=== PATIENT | female | born 1945 | race Caucasian/White ===

== ENCOUNTER 2017-07-21 17:37 | Emergency (ER) | payer OTHER ==
[~2017-07-21] VITALS: Ht 157.5 cm; Wt 68.2 kg
[~2017-07-21 17:37] MED LIST: ALBU8I INH; BENZ100 PO; CITA20TA4 PO; ENAL2.5 PO; LEVO100T4 PO; METO25 PO; PLAV75TA PO; PRAV20 PO; ZITH250T PO
[2017-07-21 17:40] VITALS: BP 138/65; PULSE 89; RESP 16; TEMP 98.8
[2017-07-21] MEDS ORDERED: ENAL2.5T PO (17:55)
[2017-07-21] MEDS ORDERED: CLOP75TA PO (17:55)
[2017-07-21] MEDS ORDERED: LEVO100T5 PO (17:55)
[2017-07-21] MEDS ORDERED: PRAV40TA2 PO (17:55)
[2017-07-21] MEDS ORDERED: CITA40TA4 PO (17:55)
[2017-07-21] MEDS ORDERED: ASPI1TAB57 PO (17:55)
[2017-07-21] MEDS ORDERED: METO25TA3 PO (17:55)
--- NOTE | 2017-07-21 19:04 | RADRPT ---
EXAM DATE/TIME: 07/21/2017 18:33 [place] COMPARISON: CHEST PA & LAT, July 19, 2015, 15:36. INDICATIONS : Cough and fever. MEDICAL HISTORY : None. SURGICAL HISTORY : None. ENCOUNTER: Initial ACUITY: 3 days PAIN SCORE: 3/10 LOCATION: Bilateral upper chest FINDINGS: A single view of the chest demonstrates the lungs to be symmetrically aerated without evidence of mas s, infiltrate or effusion. The cardiomediastinal contours are unremarkable. Osseous structures are intact. CONCLUSION: No evidence of acute cardiopulmonary disease. Yevgeniy Lehman MD on July 21, 2017 at 19:02 Board Certified Radiologist. This report was verified electronically.
--- NOTE | 2017-07-21 19:08 | PD ---
HPI Chief Complaint: Cold / Flu Symptoms Time Seen by Provider: 19:14 Travel History International Travel<30 days: No Contact w/Intl Traveler<30days: No Traveled to known affect area: No History of Present Illness HPI 72-year-old female presents to emergency department complaining of a nonproductive cough, runny nose for 2-3 days. Patient states that she is developed increased chest discomfort with coughing located in the front sternal area yesterday and decided to come in today. Says she just has not been feeling well and wanted to be evaluated. She says she has felt feverish but does not know her temperature. Denies shortness of breath or pain with inspiration. Denies nausea, vomiting, or diarrhea. Denies urinary symptoms. PFSH Past Medical History Hx Anticoagulant Therapy: Yes (plavix) Depression: Yes Cardiovascular Problems: Yes (htn on meds, [place], 4 stents placed) High Cholesterol: Yes Chemotherapy: No Cerebrovascular Accident: No Diabetes: Yes (diet control) Patient Takes Glucophage: No Diminished Hearing: No Hypertension: Yes Respiratory: No Immunizations Current: No Thyroid Disease: Yes Influenza Vaccination: No ?: Not Menopausal: Yes Past Surgical History Coronary Stent: Yes Hysterectomy: Yes Social History Alcohol Use: No Tobacco Use: No Substance Use: No Allergies-Medications (Allergen,Severity, Reaction): Coded Allergies: No Known Allergies (Unverified Adverse Reaction, Unknown, 07/21/17) Reported Meds & Prescriptions Reported Meds & Active Scripts Active Tessalon Perles (Benzonatate) 100 Mg Cap 100 Mg PO TID PRN 5 Days Prednisone 5 Mg Tab 5 Mg PO DAILY 7 Days Reported Pravastatin 40 Mg Tab 40 Mg PO DAILY Enalapril (Enalapril Maleate) 2.5 Mg Tab 2.5 Mg PO DAILY Levothyroxine (Levothyroxine Sodium) 100 Mcg Tab 100 Mcg PO DAILY Metoprolol Tartrate 25 Mg Tab 25 Mg PO DAILY Aspirin 81 (Aspirin) 81 Mg Tabdr 81 Mg PO DAILY Citalopram (Citalopram Hydrobromide) 40 Mg Tab 40 Mg PO DAILY Clopidogrel (Clopidogrel Bisulfate) 75 Mg Tab 75 Mg PO DAILY Review of Systems Except as stated in HPI: all other systems reviewed are Neg Physical Exam Narrative GENERAL: SKIN: Warm and dry. HEAD: Normocephalic. EYES: No scleral icterus. No injection or drainage. NECK: Supple, trachea midline. No JVD or lymphadenopathy. CARDIOVASCULAR: Regular rate and rhythm without murmurs, gallops, or rubs. RESPIRATORY: Breath sounds equal bilaterally. No accessory muscle use. GASTROINTESTINAL: Abdomen soft, non-tender, nondistended. MUSCULOSKELETAL: No cyanosis, or edema. BACK: Nontender without obvious deformity. No CVA tenderness. Data Data Last Documented VS Vital Signs Date Time Temp Pulse Resp B/P (MAP) Pulse Ox O2 Delivery O2 Flow Rate FiO2 07/21/17 17:40 98.8 89 16 138/65 (89) Orders Orders Chest, Single Ap (07/21/17 ) Ed Discharge Order (07/21/17 19:15) MDM Medical Decision Making Medical Screen Exam Complete: Yes Emergency Medical Condition: Yes Differential Diagnosis Acute bronchitis, pneumonia, asthma, influenza, viral syndrome. Narrative Course 72-year-old female presents to emergency department complaining of a nonproductive cough, runny nose for 2-3 days. Patient states that she is developed increased chest discomfort with coughing located in the front sternal area yesterday and decided to come in today. Says she just has not been feeling well and wanted to be evaluated. She says she has felt feverish but does not know her temperature. Denies shortness of breath or pain with inspiration. Denies nausea, vomiting, or diarrhea. Denies urinary symptoms. She says that ' they normally give her a z pack and send her home' whenever she has these symptoms. Vitals stable. Chest xray without acute process. Physical exam findings consistent with bronchitis vs viral syndrome. I explained that antibiotics would not help her condition as this appears to be a viral infection. I educated pt on the importance of using antibiotics only when indicated. Pt to start using her albuterol inhalers at home. This may help with congestion and cough. Tessalon pearles and prednisone for symptomatic relief. Encouraged adequate fluid intake and nutritious diet. Advised pt to follow up with her PCP in 2-3 days. Return to the ED for worsening or persistent symptoms. Diagnosis Primary Impression: Bronchitis Referrals: Primary Care Physician Additional Instructions: Follow up with your primary care physician within 2-3 days. If your symptoms persist or worsen, return to the emergency department. Continue albuterol inhalers for your congestion and chest discomfort. Scripts Benzonatate (Tessalon Perles) 100 Mg Cap 100 MG PO TID Y for COUGH for 5 Days, CAP 0 Refills Prov: Iwona Izquierdo 07/21/17 Prednisone (Prednisone) 5 Mg Tab 5 MG PO DAILY for 7 Days, #7 TAB 0 Refills Prov: Iwona Izquierdo 07/21/17 Disposition: 01 DISCHARGE HOME Condition: Stable Iwona Izquierdo Jul 21, 2017 19:08
[2017-07-21] MEDS ORDERED: PRED5TAB PO (19:13)
[2017-07-21] MEDS ORDERED: BENZ100 PO (19:13)
== END 2017-07-21 19:32 | disposition home or self-care (01) ==
LOC: PHEFT 17:37
DX: J40 Bronchitis, not specified as acute or chronic (principal); F32.9 Major depressive disorder, single episode, unspecified; I10 Essential (primary) hypertension; E78.00 Pure hypercholesterolemia, unspecified; E11.9 Type 2 diabetes mellitus without complications; E07.9 Disorder of thyroid, unspecified; Z79.82 Long term (current) use of aspirin; Z79.899 Other long term (current) drug therapy
CPT/HCPCS: 71010; 99284